=== PATIENT | female | born 1975 | race African-American/Black ===

== ENCOUNTER 2016-10-02 12:04 | Observation (INO) | payer BC ==
[2016-10-02] VITALS (65 sets, daily range): BP systolic 112–124; BP diastolic 53–73; PULSE 80–115; RESP 18; TEMP 97.8–98.3
[2016-10-02] MEDS ORDERED: ACETAMINOPHEN 325 MG TAB PO PRN (12:45)
[2016-10-02] MEDS ORDERED: SODIUM CHLORIDE 0.9% FLUSH 10 ML FLUSH IV FLUSH PRN (12:45)
[2016-10-02] MEDS ORDERED: ONDANSETRON ODT 4 MG TAB PO PRN (12:45)
[2016-10-02] MEDS ORDERED: ZOLPIDEM TARTRATE 5 MG TAB PO PRN (12:45)
[2016-10-02] MEDS ORDERED: ALUMINUM/MAGNESIUM/SIMETH 30 ML CUP PO PRN (12:45)
[2016-10-02] MEDS: LACTATED RINGER'S 1000 ML INJ 1,000 ML IV SCH ×2 (13:46→20:18)
[2016-10-02] MEDS: BETAMETHASONE SOD PHOS/ACETATE SUSP 30 MG/5 ML VIAL IM SCH (13:47)
--- NOTE | 2016-10-02 13:59 | MH ---
cc: WINNIE KO DATE OF ADMISSION: 10/02/2016 CHIEF COMPLAINT: Patient with recurrent oligohydramnios on twin gestation. HISTORY OF PRESENT ILLNESS: The patient is a 40-year-old female 2, para 1-0-0-1 who underwent IVF conception February of 2016 resulting in a dichorionic diamniotic twin gestation. Due date is November 22, 2016. The patient has been followed by serial ultrasound reflecting oligohydramnios with an JEANNA of 3.24 of Twin A. Baby B has an JEANNA of 6.09. Biophysical profile is 8/8. The patient has no significant complaints, concerns or issues. Both babies are active with normal gross movement. The patient is admitted for oligohydramnios and monitoring. The patient will also be recommended for betamethasone injections for lung maturity. OBSTETRICAL HISTORY: The patient is status post vaginal delivery in 1999 of a full-term healthy male weighing 8 pounds, 13 ounces. The patient subsequently underwent myomectomy in November of 2015 and after the procedure was recommended to have an elective if she conceived. PAST MEDICAL HISTORY: She denies any systemic or chronic disease state. ALLERGIES: SHE HAS NO KNOWN DRUG ALLERGIES. CURRENT MEDICATIONS: vitamins. FAMILY HISTORY Noncontributory. SOCIAL HISTORY: She denies use of alcohol or illicit substances. The patient has been exposed to marijuana in the very beginning prior to and has since been tested negative. The patient does not smoke. The patient is . PHYSICAL EXAMINATION: GENERAL: The patient is well-appearing well-nourished female in no acute distress. VITAL SIGNS: Stable. Blood pressures 100/60. She weighs 210 pounds. HEAD, EYES, EARS, NOSE, THROAT: Shows no adenopathy or thyromegaly. LUNGS: Lungs were clear in all almanza. CARDIAC: Regular rate and rhythm without murmur, rub or gallop. ABDOMEN: Abdomen is gravid. Fundus measures about 38 cm. heart tones were documented in the 140s each. The cervix is closed. EXTREMITIES: Symmetrical. Full range of motion. No cyanosis, clubbing or edema. ASSESSMENT: The patient is 32 weeks and 4 days by IVF conception dichorionic diamniotic twin gestation with oligohydramnios of twin A. The patient's estimated weight was documented September 28 this month. Twin A is 1784 grams. Twin B is 2036 grams. Both babies are vertex. The patient's group B strep status is unknown. The plan of delivery if that is to precipitate would be an elective . The patient will be monitored with reassessment of her amniotic fluid volume. MD TONY Murphy/KIM /12:23 PM /1:40 PM
[2016-10-02 14:22] LABS: AUTOMATED NEUTROPHIL # 4.9 TH/MM3 (1.8-7.7); BASOPHIL % 0.2 % (0.0-2.0); EOSINOPHIL % 0.4 % (0.0-4.0); HEMATOCRIT 35.5 % (35.0-46.0); LYMPH % 27.3 % (9.0-44.0); LYMPHOCYTE # 2.1 TH/MM3 (1.0-4.8); MEAN CELL VOLUME 89.1 FL (80.0-100.0); MEAN CORPUSCULAR HEMOGLOBIN 29.7 PG (27.0-34.0); MEAN CORPUSCULAR HGB CONC 33.3 % (32.0-36.0); MONO % 6.5 % (0.0-8.0); NEUT % 65.6 % (16.0-70.0); PLATELET COUNT 136 TH/MM3 (150-450); RED BLOOD COUNT 3.99 MIL/MM3 (4.00-5.30); WHITE BLOOD COUNT 7.5 TH/MM3 (4.0-11.0)
[2016-10-02 14:23] LABS: HEMO FLAGS AUTO DIFF
[2016-10-02 14:37] LABS: BACTERIA, URINE RARE /hpf; BLOOD, URINE NEG (NEG); COMMENT (UR) CULT NOT INDICATED; CULTURE IF INDICATED CULT NOT INDICATED; GLUCOSE,URINE NEG (NEG); KETONE, URINE NEG (NEG); MUCUS URINE FEW /lpf (OCC); NITRITE,URINE NEG (NEG); PH, URINE 6.5 (5.0-8.5); SQUAMOUS EPITHELIAL CELL URINE 36 /hpf (0-5); URINE COLOR YELLOW (YELLW/STRAW)
[2016-10-02 14:50] LABS: BANDS 1 % (0-6); EOSINOPHILS 1 % (0-4); METAMYELOCYTES 1 % (0-1); MYELOCYTES 1 % (0-0); POLYS (SEG NEUTROPHILS) 64 % (16-70); WBC DIFF SAMPLE 100
[2016-10-02 14:52] LABS: PLATELET ESTIMATE SMEAR LOW (NORMAL); PLATELET MORPHOLOGY ENLARGED (NORMAL); SCAN/DIFF FINAL DIFF MANUAL
[2016-10-02] MEDS: SODIUM CHLORIDE 0.9% FLUSH 10 ML FLUSH IV FLUSH SCH (21:00)
[2016-10-03] VITALS (30 sets, daily range): BP systolic 102–135; BP diastolic 52–66; PULSE 90–107; RESP 18–20; TEMP 97.9–98.2
[2016-10-03] MEDS: LACTATED RINGER'S 1000 ML INJ 1,000 ML IV SCH (04:00)
[2016-10-03] MEDS ORDERED: MULTIVIT/MIN/PREN/FOL AC/IRON PRENATAL TAB PO SCH (09:00)
[2016-10-03] MEDS: SODIUM CHLORIDE 0.9% FLUSH 10 ML FLUSH IV FLUSH SCH (09:00)
--- NOTE | 2016-10-03 09:52 | PD.OB.ANTE ---
Subjective Diagnosis: (1) Dichorionic diamniotic twin in third trimester (2) conceived through in vitro fertilization (3) Oligohydramnios antepartum Diagnosis: Principal (4) Advanced maternal age in multigravida Antepartum ROS: Reports: movement normal, Denies: New complaints, Loss of fluid, Vaginal bleeding, Contractions, Other Objective Vital Signs Vital Signs Date Time Temp Pulse Resp B/P Pulse Ox O2 Delivery O2 Flow Rate FiO2 10/03/16 08:24 107 20 135/65 10/03/16 08:20 102 10/03/16 08:15 100 10/03/16 08:10 101 10/03/16 08:05 101 10/03/16 08:00 99 10/03/16 06:45 103 10/03/16 06:40 104 10/03/16 06:35 103 10/03/16 06:30 101 10/03/16 06:25 99 10/03/16 06:20 104 10/03/16 06:15 101 10/03/16 06:10 102 10/03/16 06:05 96 10/03/16 06:00 92 10/03/16 05:56 98.2 10/03/16 05:55 90 10/03/16 05:50 18 10/03/16 05:50 91 10/03/16 05:45 94 10/03/16 05:35 90 10/03/16 05:28 104 102/52 10/03/16 05:25 102 10/03/16 05:20 95 10/03/16 05:15 105 10/03/16 05:10 94 10/03/16 05:05 98 10/03/16 05:00 91 10/03/16 00:00 18 10/02/16 23:55 91 10/02/16 23:50 88 10/02/16 23:40 102 10/02/16 23:25 96 10/02/16 23:20 99 10/02/16 23:18 93 112/53 10/02/16 23:15 99 10/02/16 23:10 91 10/02/16 23:05 100 10/02/16 23:00 101 10/02/16 20:12 18 10/02/16 20:12 97.8 10/02/16 20:10 87 10/02/16 20:10 89 124/73 10/02/16 20:00 92 10/02/16 17:55 98 10/02/16 17:50 99 10/02/16 17:45 113 10/02/16 17:40 97 10/02/16 17:35 98.3 106 10/02/16 17:30 106 10/02/16 17:25 115 10/02/16 17:22 18 10/02/16 17:22 105 123/71 10/02/16 17:20 111 10/02/16 17:15 115 10/02/16 16:50 100 10/02/16 16:40 80 10/02/16 16:35 100 10/02/16 16:30 82 10/02/16 16:25 102 10/02/16 16:15 104 10/02/16 16:10 105 10/02/16 16:05 105 10/02/16 16:00 104 10/02/16 15:55 108 10/02/16 15:50 103 10/02/16 15:45 103 10/02/16 15:40 103 10/02/16 15:35 105 10/02/16 15:30 99 10/02/16 15:25 97 10/02/16 15:20 99 10/02/16 15:15 103 10/02/16 15:10 108 10/02/16 15:05 102 10/02/16 15:00 95 10/02/16 14:55 94 10/02/16 14:50 96 10/02/16 14:45 97 10/02/16 14:40 94 10/02/16 14:35 95 10/02/16 14:30 96 10/02/16 14:20 94 10/02/16 14:15 93 10/02/16 14:10 97 10/02/16 14:05 96 10/02/16 13:25 87 10/02/16 13:20 89 10/02/16 13:15 88 10/02/16 13:05 99 10/02/16 13:00 91 10/02/16 12:55 98 10/02/16 12:50 92 10/02/16 12:45 94 10/02/16 12:40 98 10/02/16 12:35 94 10/02/16 12:30 101 Lab & Micro Results Test 10/02/16 13:45 White Blood Count 7.5 TH/MM3 Red Blood Count 3.99 MIL/MM3 Hemoglobin 11.8 GM/DL Hematocrit 35.5 % Mean Corpuscular Volume 89.1 FL Mean Corpuscular Hemoglobin 29.7 PG Mean Corpuscular Hemoglobin 33.3 % Concent Red Cell Distribution Width 15.0 % Platelet Count 136 TH/MM3 Mean Platelet Volume 9.5 FL Neutrophils (%) (Auto) 65.6 % Lymphocytes (%) (Auto) 27.3 % Monocytes (%) (Auto) 6.5 % Eosinophils (%) (Auto) 0.4 % Basophils (%) (Auto) 0.2 % Neutrophils # (Auto) 4.9 TH/MM3 Lymphocytes # (Auto) 2.1 TH/MM3 Monocytes # (Auto) 0.5 TH/MM3 Eosinophils # (Auto) 0.0 TH/MM3 Basophils # (Auto) 0.0 TH/MM3 CBC Comment AUTO DIFF Differential Total Cells 100 Counted Neutrophils % (Manual) 64 % Band Neutrophils % 1 % Lymphocytes % 29 % Monocytes % 3 % Eosinophils % 1 % Neutrophils # (Manual) 5.0 TH/MM3 Metamyelocytes 1 % Myelocytes 1 % Differential Comment FINAL DIFF MANUAL Platelet Estimate LOW Platelet Morphology Comment ENLARGED Red Cell Morphology Comment NORMAL Urine Color YELLOW Urine Turbidity HAZY Urine pH 6.5 Urine Specific [place] 1.019 Urine Protein TRACE mg/dL Urine Glucose (UA) NEG mg/dL Urine Ketones NEG mg/dL Urine Occult Blood NEG Urine Nitrite NEG Urine Bilirubin NEG Urine Urobilinogen LESS THAN 2.0 MG/DL Urine Leukocyte Esterase NEG Urine RBC LESS THAN 1 /hpf Urine WBC 1 /hpf Urine Squamous Epithelial 36 /hpf Cells Urine Bacteria RARE /hpf Urine Mucus FEW /lpf Microscopic Urinalysis Comment CULT NOT INDICATED Band and Hold Physical Exam GENERAL: Well-nourished, well-developed patient. CARDIOVASCULAR: Regular rate and rhythm without murmurs, gallops, or rubs. RESPIRATORY: Breath sounds equal bilaterally. No accessory muscle use. ABDOMEN/GI: Abdomen soft, non-tender. Fundus: [-] GENITOURINARY: External Genitalia: intact and normal in appearance Cervix: defer Presentation:ceph/ceph Membranes: [-] Uterine Contractions: [-] FHT's: Category:I Baseline:130 Reactive: [-] Variability:mod Decels: [-] EXTREMITIES: No cyanosis or edema, non-tender, without signs of DVT. Assessment and Plan Problem List: (1) Oligohydramnios antepartum Status: Acute (2) Dichorionic diamniotic twin in third trimester Status: Acute (3) conceived through in vitro fertilization Status: Acute (4) Advanced maternal age in multigravida Status: Acute Assessment and Plan The patient is 41 yo at 32 weeks and 4 days by IVF conception dichorionic diamniotic twin gestation with oligohydramnios of twin A. Pt admitted for iv hydration, bms , and re-evaluation. She is s/p one dose of bms. She will receive second dose this afternoon. Repeat BPP today 02/02. Twin A JEANNA 2.9 and weight 1773g (34%), Twin B 6.1 and weight 2052g (54%) The patient's group B strep status is unknown. The plan of delivery if that is to precipitate would be an elective . The patient will be monitored with reassessment of her amniotic fluid volume. Nuria Sheldon MD Oct 03, 2016 09:52
[2016-10-03] MEDS: BETAMETHASONE SOD PHOS/ACETATE SUSP 30 MG/5 ML VIAL IM SCH (13:51)
--- NOTE | 2016-10-03 14:12 | HHI.DCPOC ---
Discharge Care Plan Diagnosis: (1) Oligohydramnios antepartum (2) Dichorionic diamniotic twin in third trimester (3) Advanced maternal age in multigravida (4) conceived through in vitro fertilization Report Symptoms to Your Doctor -Temperate above 100.5 degrees -Unusual pain or calf pain -Increased vaginal bleeding -Painful or difficulty urinating -Feelings of extreme sadness or anxiety after 2 weeks Goals to Promote Your Health * To prevent worsening of your condition and complications * To maintain your health at the optimal level Directions to Meet Your Goals Take your medications as prescribed Follow your dietary instruction Follow activity as directed Ensure plenty of rest for recovery Drink fluids for hydration Keep your appointments as scheduled Take your immunizations and boosters as scheduled If your symptoms worsen call your PCP, if no PCP go to Urgent Care Center or Emergency Room Smoking is Dangerous to Your Health. Avoid second hand smoke Call the 24-hour crisis hotline for domestic abuse at Nuria Sheldon MD Oct 03, 2016 14:12
== END 2016-10-03 14:30 | disposition home or self-care (01) ==
LOC: H2EA 12:04
PROVIDERS: ADMIT Obstetrics & Gynecology; ATTEND Obstetrics & Gynecology
DX: O41.03X0 Oligohydramnios, third trimester, not applicable or unspecified (principal); O30.043 Twin pregnancy, dichorionic/diamniotic, third trimester; O09.813 Supervision of pregnancy resulting from assisted reproductive technology, third trimester; O09.523 Supervision of elderly multigravida, third trimester; Z3A.32 32 weeks gestation of pregnancy
CPT/HCPCS: 76816; 76819; 81001; 84112; 85007; 85027; G0378; J0702; J7120

== ENCOUNTER → 2016-10-05 | Emergency (ER) | payer BC ==
[~2016-10-05] MED LIST: OXYC1TAB63 PO
--- NOTE | 2016-10-05 13:19 | PD ---
HPI Chief Complaint Presenting for NST Travel History International Travel<30 Days: No Contact w/Intl Traveler<30Days: No Known Affected Area: No History of Present Illness HPI TIUP at 33w 1d, presenting per Dr. Parnell for NST. Patient seen in the office, noted to have a BPP of 4/8 twin A and 8/8 twin B. Patient without complaints today. Reports good FM. Denies contractions/LOF/VB. Para: 1 : 3 History Past Medical History Medical History: Denies Significant Hx Obstetric History Obstetric History 1 FT Past Surgical History Narrative Surgical 2016 Myomectomy Family History Family History: Negative Social History Alcohol Use: No Tobacco Use: No Substance Abuse: No Allergies-Medications (Allergen,Severity, Reaction): Coded Allergies: No Known Allergies (Verified , 12/27/08) Physical Exam AFVSS BP 113/63 Narrative GENERAL: Well-nourished, well-developed patient. SKIN: Warm and dry. HEAD: Normocephalic and atraumatic. EYES: No scleral icterus. No injection or drainage. ENT: No nasal drainage noted. Mucous membranes pink. Airway patent. NECK: Supple, trachea midline. No JVD. CARDIOVASCULAR: Regular rate and rhythm without murmurs, gallops, or rubs. RESPIRATORY: Breath sounds equal bilaterally. No accessory muscle use. BREASTS: Bilateral exam showed no masses , no retractions, no nipple discharge. ABDOMEN/GI: Abdomen soft, non-tender, bowel sounds present, no rebound, no guarding Gravid to [-] weeks size Fundal Height: [-] GENITOURINARY: External Genitalia: intact and normal in appearance BUS glands: [-] Cervix: [-] Dilatation: [-] Effacement: [-] Station: [-] Presentation: [-] Membranes: [intact or ruptured] Uterine Contractions: [-] FHT's: Category: [1] Baseline: [Twin A 150s, moderate variability, 1 variable to 120/Twin B moderate variability] Reactive: [-] Variability: [-] Decels: [-] EXTREMITIES: No cyanosis or edema. BACK: Nontender without obvious deformity. No CVA tenderness. NEUROLOGICAL: Awake and alert. Motor and sensory grossly within normal limits. Five out of 5 muscle strength in all muscle groups. Normal speech. Data Data Vital Signs Reviewed: Yes MDM Interpretation(s) TIUP at 33w 1d, BPP of 4/8- Twin A Plan Will obtain NST. Continue monitoring. heart rate tracing d/w Dr. Parnell. Will d/c home. Patient to keep f/u as scheduled for 10-07-16. All questions answered. Disposition: 01 DISCHARGE HOME Condition: Silvina Prakash MD Oct 05, 2016 13:19
== END | disposition home or self-care (01) ==
LOC: HOBED 12:48
DX: O30.003 Twin pregnancy, unspecified number of placenta and unspecified number of amniotic sacs, third trimester (principal); Z3A.33 33 weeks gestation of pregnancy
CPT/HCPCS: 99283

== ENCOUNTER 2016-10-06 09:37 | Inpatient (IN) | payer BC ==
[2016-10-06] VITALS (13 sets, daily range): BP systolic 107–141; BP diastolic 53–91; PULSE 65–89; RESP 17–18; TEMP 98.1–99.7; O2SAT 97–99
[2016-10-06] MEDS ORDERED: CITRIC ACID-SODIUM CITRATE LIQ 30 ML UDC PO SCH (10:30)
[2016-10-06] MEDS ORDERED: LACTATED RINGER'S 1000 ML IV ONE (10:30)
[2016-10-06] MEDS: LACTATED RINGER'S 1000 ML IV SCH ×2 (10:30→22:02)
[2016-10-06] MEDS ORDERED: ceFAZolin 2 GM PREMIX 50 ML IV SCH (10:30)
[2016-10-06] MEDS ORDERED: OXYTOCIN 10 UNIT/ML AMP ONE (10:46)
[2016-10-06 10:53] LABS: BACTERIA, URINE OCC /hpf; BLOOD, URINE NEG (NEG); GLUCOSE,URINE NEG (NEG); HYALINE CAST, URINE 2 /lpf (RARE); KETONE, URINE NEG (NEG); MUCUS URINE FEW /lpf (OCC); NITRITE,URINE NEG (NEG); PH, URINE 6.5 (5.0-8.5); SQUAMOUS EPITHELIAL CELL URINE 19 /hpf (0-5); TRANSITIONAL EPI CELLS, URINE <1 /hpf; URINE COLOR YELLOW (YELLW/STRAW)
[2016-10-06 10:54] LABS: AUTOMATED NEUTROPHIL # 5.4 TH/MM3 (1.8-7.7); BASOPHIL % 0.1 % (0.0-2.0); EOSINOPHIL % 0.2 % (0.0-4.0); HEMATOCRIT 34.2 % (35.0-46.0); LYMPH % 27.7 % (9.0-44.0); LYMPHOCYTE # 2.3 TH/MM3 (1.0-4.8); MEAN CELL VOLUME 89.7 FL (80.0-100.0); MEAN CORPUSCULAR HEMOGLOBIN 29.7 PG (27.0-34.0); MEAN CORPUSCULAR HGB CONC 33.1 % (32.0-36.0); MONO % 7.3 % (0.0-8.0); NEUT % 64.7 % (16.0-70.0); PLATELET COUNT 168 TH/MM3 (150-450); RED BLOOD COUNT 3.81 MIL/MM3 (4.00-5.30); RED CELL DISTRIBUTION WIDTH 15.1 % (11.6-17.2); WHITE BLOOD COUNT 8.3 TH/MM3 (4.0-11.0)
[2016-10-06 10:56] LABS: HEMO FLAGS AUTO DIFF
[2016-10-06 10:56] LABS: COMMENT (UR) CULTURE INDICATED; CULTURE IF INDICATED CULTURE INDICATED
[2016-10-06] MEDS ORDERED: ACETAMINOPHEN 1000 MG/100 ML VIAL IV ONE ×2 (11:45→13:09)
[2016-10-06] MEDS ORDERED: oxyCODONE/ACETAMINOPHEN 5 MG/325 MG TAB PO PRN (11:45)
[2016-10-06] MEDS ORDERED: SIMETHICONE 80 MG CHEWABLE TAB PO PRN (11:45)
[2016-10-06] MEDS: SODIUM CHLORIDE 0.9% FLUSH 10 ML FLUSH IV FLUSH SCH ×2 (11:45→22:00)
[2016-10-06] MEDS ORDERED: EPIDURAL-NALOXONE HCL 0.4 MG/ML AMP IV PRN (11:45)
[2016-10-06] MEDS ORDERED: EPIDURAL-DIPHENHYDRAMINE HCL 50 MG CAP PO PRN (11:45)
[2016-10-06] MEDS ORDERED: ONDANSETRON HCL 4 MG/2 ML VIAL IV PUSH PRN (11:45)
[2016-10-06] MEDS ORDERED: EPIDURAL-DO NOT ADMINISTER ANTICOAGULANTS PRN (11:45)
[2016-10-06] MEDS ORDERED: OXYTOCIN 30 UNITS-500ML PREMIX 500 ML IV ONE (11:45)
[2016-10-06] MEDS ORDERED: EPIDURAL-NO SYSTEMIC NARCOTICS PRN (11:45)
[2016-10-06] MEDS ORDERED: EPIDURAL-DIPHENHYDRAMINE HCL 50 MG/ML VIAL IV PUSH PRN (11:45)
[2016-10-06] MEDS ORDERED: SODIUM CHLORIDE 0.9% FLUSH 10 ML FLUSH IV FLUSH PRN (11:45)
[2016-10-06 11:46] LABS: BANDS 1 % (0-6); METAMYELOCYTES 1 % (0-1); MYELOCYTES 1 % (0-0); NEUTROPHIL # MANUAL DIFF 5.1 TH/MM3 (1.8-7.7); PLATELET ESTIMATE SMEAR NORMAL (NORMAL); PLATELET MORPHOLOGY NORMAL (NORMAL); POLYS (SEG NEUTROPHILS) 58 % (16-70); SCAN/DIFF FINAL DIFF MANUAL; WBC DIFF SAMPLE 100
[2016-10-06] MEDS ORDERED: METHYLERGONOVINE MALEATE 0.2 MG/ML VIAL ONE ×2 (12:34→13:56)
[2016-10-06] MEDS ORDERED: MORPHINE SULFATE PF 5 MG/10 ML VIAL ONE (12:41)
[2016-10-06] MEDS ORDERED: ONDANSETRON HCL 4 MG/2 ML VIAL ONE (12:41)
--- NOTE | 2016-10-06 12:43 | PD.OB.DELI ---
Procedure Note Section Procedure Performed by Ryder Parnell Procedure: Primary Low Transverse Sec (prior myomectomy,required section) Confirmed correct: Patient, Procedure, Site, Time-out taken Anesthesia: Spinal Medication prior to procedure: As documented in eMAR Monitoring during procedure: Blood pressure monitoring, site monitor, doppler, monitor Urinary catheter: Inserted using sterile technique, To dependent drainage Sterile preparation: Duraprep Position: Supine with wedge to right side, Supine with safety belt applied Operative Features Skin Incision: Pfannenstiel Uterine Incision: Low transverse w/knife / scissors Membranes Ruptured: Artificially Presentation: Occiput anterior (A and B) Delivery of infant: Uneventful Infant: Male (female -A), Female (Twin B 7,7; weight 4# 12oz) One Minute : 8 Five Minute : 9 Weight: 3# 11oz Placenta delivered: Intact Medications: Antibiotics, Oxytocin Procedure tolerated: Well Maternal Condition: Stable Condition: Stable ( both on room air, adm. to NICU for obs.) Ryder Parnell MD Oct 06, 2016 12:43
[2016-10-06] MEDS ORDERED: METHYLERGONOVINE MALEATE 0.2 MG/ML VIAL IM ONE ×2 (12:45→13:58)
[2016-10-06] MEDS ORDERED: CARBOPROST TROMETHAMINE 250 MCG/ML VIAL ONE (13:00)
[2016-10-06] MEDS ORDERED: CARBOPROST TROMETHAMINE 250 MCG/ML VIAL IM ONE (13:02)
[2016-10-06] MEDS ORDERED: OXYTOCIN 30 UNITS-500ML PREMIX 500 ML ONE ×2 (13:09→14:59)
[2016-10-06] MEDS ORDERED: MISOPROSTOL 200 MCG TAB RECTAL ONE (13:58)
[2016-10-06] MEDS ORDERED: MISOPROSTOL 200 MCG TAB ONE ×2 (13:58)
--- NOTE | 2016-10-06 14:07 | HHI.PR ---
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 Patient is s/p c- section for twin gestation, approx 11:50 am. Upon arrival approx 300cc blood and clot on pad. Uterine evacuation performed with additional 300cc blood clot obtained with much improved uterine tone. Methergine 0.2mg IM given, and total of 1000mg cytotec administered. BP 132/85 P91 O2 sat 98% CBC/PT/PTT/fibinogen will be ordered stat Patient is presently hemodynamically stable Heide Cabello MD Oct 06, 2016 14:07
[2016-10-06 14:31] LABS: HEMATOCRIT 32.7 % (35.0-46.0); MEAN CELL VOLUME 88.7 FL (80.0-100.0); MEAN CORPUSCULAR HEMOGLOBIN 30.6 PG (27.0-34.0); MEAN CORPUSCULAR HGB CONC 34.5 % (32.0-36.0); PLATELET COUNT 150 TH/MM3 (150-450); RED BLOOD COUNT 3.69 MIL/MM3 (4.00-5.30); RED CELL DISTRIBUTION WIDTH 14.9 % (11.6-17.2); REVIEW FLAG FINAL; WHITE BLOOD COUNT 6.2 TH/MM3 (4.0-11.0)
[2016-10-06 15:28] LABS: APTT (PATIENT) 28.2 SEC (24.3-30.1); INTERNATIONAL NORMALIZED RATIO 0.9 RATIO; PROTHROMBIN TIME - PATIENT 10.2 SEC (9.8-11.6)
[2016-10-06] MEDS ORDERED: LACTATED RINGER'S 1000 ML INJ 1,000 ML IV SCH (16:33)
[2016-10-06] MEDS ORDERED: OXYTOCIN 30 UNITS-500ML PREMIX 500 ML IV PRN (21:45)
[2016-10-06] MEDS: IBUPROFEN 600 MG TAB PO PRN (22:05)
[2016-10-06] MEDS: oxyCODONE/ACETAMINOPHEN 5 MG/325 MG TAB PO PRN (22:05)
[2016-10-06] MEDS: DOCUSATE SODIUM 50 MG/SENNA 8.6 MG TAB PO PRN (22:05)
[2016-10-07 01:25] VITALS: BP 100/58
[2016-10-07 01:26] VITALS: PULSE 75; RESP 16; TEMP 98.1
[2016-10-07 05:59] LABS: AUTOMATED NEUTROPHIL # 6.6 TH/MM3 (1.8-7.7); BASOPHIL # 0.1 TH/MM3 (0-0.2); BASOPHIL % 0.6 % (0.0-2.0); EOSINOPHIL # 0.1 TH/MM3 (0-0.4); EOSINOPHIL % 0.8 % (0.0-4.0); HEMATOCRIT 29.5 % (35.0-46.0); LYMPH % 23.9 % (9.0-44.0); LYMPHOCYTE # 2.4 TH/MM3 (1.0-4.8); MEAN CELL VOLUME 88.6 FL (80.0-100.0); MEAN CORPUSCULAR HEMOGLOBIN 30.2 PG (27.0-34.0); MEAN CORPUSCULAR HGB CONC 34.1 % (32.0-36.0); MONO % 9.5 % (0.0-8.0); NEUT % 65.2 % (16.0-70.0); PLATELET COUNT 153 TH/MM3 (150-450); RED BLOOD COUNT 3.33 MIL/MM3 (4.00-5.30); RED CELL DISTRIBUTION WIDTH 14.9 % (11.6-17.2)
[2016-10-07 06:13] LABS: HEMO FLAGS AUTO DIFF
[2016-10-07 07:51] LABS: SCAN/DIFF AUTO DIFF CONFIRMED
--- NOTE | 2016-10-07 08:31 | HHI.OB ---
Subjective Post Operative Day: 1 Remarks no complaints Objective Vitals/I&O Vital Signs Date Time Temp Pulse Resp B/P Pulse Ox O2 Delivery O2 Flow Rate FiO2 10/07/16 01:26 98.1 16 10/07/16 01:26 75 10/07/16 01:25 100/58 10/06/16 19:17 82 17 120/69 98 10/06/16 19:17 98.5 10/06/16 15:50 74 18 125/78 10/06/16 15:50 99.7 10/06/16 15:04 98 10/06/16 15:04 70 18 114/53 10/06/16 14:55 98.4 10/06/16 14:49 83 18 121/82 98 10/06/16 14:33 65 18 130/84 97 10/06/16 14:20 83 18 141/91 98 10/06/16 14:05 83 18 99 10/06/16 14:05 132/85 10/06/16 13:50 76 18 119/76 10/06/16 13:50 97 10/06/16 13:32 82 18 134/73 98 10/06/16 13:18 88 18 132/83 10/06/16 13:18 98 10/06/16 13:04 89 18 98 10/06/16 13:04 114/79 10/06/16 12:45 98.1 81 18 107/71 98 Result Diagram: 10/07/16 0544 Objective Remarks GENERAL: Well-nourished, well-developed patient. CARDIOVASCULAR: Regular rate and rhythm without murmurs, gallops, or rubs. RESPIRATORY: Breath sounds equal bilaterally. No accessory muscle use. ABDOMEN/GI: Abdomen soft, non-tender, bowel sounds present. Incision: dressing Clean, dry and intact. Fundus: Firm, non-tender at umbilicus. GENITOURINARY: Light to moderate bleeding. EXTREMITIES: No cyanosis or edema, non-tender, without signs of DVT. Medications and IVs Current Medications Medications (Trade) Dose Ordered Sig/Bruce Route Start Time Stop Time Status Last Admin Lactated Ringer's 1,000 ml @ 150 mls/hr Q6H40M IV 10/06/16 10:30 10/06/16 22:02 (Lr 1000 ml Inj) 1,000 ml @ 100 mls/hr Q10H IV 10/06/16 16:33 10/07/16 12:32 (NS Flush) 2 ml BID IV FLUSH 10/06/16 11:45 10/06/16 22:00 (NS Flush) 2 ml UNSCH PRN IV FLUSH 10/06/16 11:45 (Mylicon Chew) 80 mg QID PRN PO 10/06/16 11:45 (Motrin) 600 mg Q6H PRN PO 10/06/16 11:45 10/06/16 22:05 (Percocet 5-325 Mg) 1 tab Q4H PRN PO 10/06/16 11:45 10/06/16 22:05 (Percocet 5-325 Mg) 2 tab Q4H PRN PO 10/06/16 11:45 (Jalyn-Colace) 2 tab Q12H PRN PO 10/06/16 11:45 10/06/16 22:05 (M-M-R Ii Inj) 0.5 ml ONCE ONCE SQ 10/07/16 16:00 10/07/16 16:01 (Boostrix Inj) 0.5 ml ONCE ONCE IM 10/07/16 16:00 10/07/16 16:01 (Zofran Inj) 4 mg Q6H PRN IV PUSH 10/06/16 11:45 Miscellaneous Information NO SYSTEMIC NARCOTICS TO BE GIVEN FO... UNSCH PRN .XX 10/06/16 11:45 10/07/16 11:44 (Narcan Inj) 0.4 mg UNSCH PRN IV 10/06/16 11:45 10/07/16 11:44 (Benadryl Inj) 25 mg Q6H PRN IV PUSH 10/06/16 11:45 10/07/16 11:44 (Benadryl) 50 mg Q6H PRN PO 10/06/16 11:45 10/07/16 11:44 Miscellaneous Information ALL NURSING DEPARTMENTS UNSCH PRN .XX 10/06/16 11:45 10/07/16 11:44 Assessment/Plan Problem List: (1) 33 weeks gestation of (2) Twin in third trimester (3) delivery delivered Assessment and Plan POD #1 s/p c/s due to previous myomectomy, twins, Discharge Planning routine Attending Attestation pt seen by me Thelma Kirby MD Oct 07, 2016 08:31
[2016-10-07] MEDS: IBUPROFEN 600 MG TAB PO PRN ×2 (08:44→18:12)
[2016-10-07] MEDS: oxyCODONE/ACETAMINOPHEN 5 MG/325 MG TAB PO PRN ×2 (08:44→22:52)
[2016-10-07] MEDS ORDERED: MEASLES, MUMPS, RUBELLA VACCINE 0.5 ML VIAL SQ ONE (16:00)
[2016-10-07] MEDS ORDERED: DIPHTH/TETANUS/ACEL PERTUSSIS (BOOSTER) 0.5 ML VIAL/PFS IM ONE (16:00)
[2016-10-07] MEDS: DOCUSATE SODIUM 50 MG/SENNA 8.6 MG TAB PO PRN (22:50)
[2016-10-08] MEDS: IBUPROFEN 600 MG TAB PO PRN (06:18)
[2016-10-08] MEDS: oxyCODONE/ACETAMINOPHEN 5 MG/325 MG TAB PO PRN (06:19)
--- NOTE | 2016-10-08 08:45 | HHI.OB ---
Subjective Post Operative Day: 3 Remarks doing well except pain is significant 12/05 Objective Result Diagram: 10/07/16 0544 Objective Remarks GENERAL: Well-nourished, well-developed patient. CARDIOVASCULAR: Regular rate and rhythm without murmurs, gallops, or rubs. RESPIRATORY: Breath sounds equal bilaterally. No accessory muscle use. ABDOMEN/GI: Abdomen soft, non-tender, bowel sounds present. Incision: dressing Clean, dry and intact. time to remove giovany Fundus: Firm, non-tender at umbilicus. GENITOURINARY: Light to moderate bleeding. EXTREMITIES: No cyanosis or edema, non-tender, without signs of DVT. Medications and IVs Current Medications Medications (Trade) Dose Ordered Sig/Bruce Route Start Time Stop Time Status Last Admin (Lr 1000 ml Inj) 1,000 ml @ 150 mls/hr Q6H40M IV 10/06/16 10:30 10/06/16 22:02 (NS Flush) 2 ml BID IV FLUSH 10/06/16 11:45 10/06/16 22:00 (NS Flush) 2 ml UNSCH PRN IV FLUSH 10/06/16 11:45 (Mylicon Chew) 80 mg QID PRN PO 10/06/16 11:45 (Motrin) 600 mg Q6H PRN PO 10/06/16 11:45 10/08/16 06:18 (Percocet 5-325 Mg) 1 tab Q4H PRN PO 10/06/16 11:45 10/08/16 06:19 (Percocet 5-325 Mg) 2 tab Q4H PRN PO 10/06/16 11:45 (Jalyn-Colace) 2 tab Q12H PRN PO 10/06/16 11:45 10/07/16 22:50 (Zofran Inj) 4 mg Q6H PRN IV PUSH 10/06/16 11:45 Assessment/Plan Problem List: (1) 33 weeks gestation of (2) Twin in third trimester (3) delivery delivered Assessment and Plan POD #3 s/p c/s due to previous myomectomy, twins, needs giovany out discharge to stay close and remain on campus follow up one week Discharge Planning routine Evangelina Cramer MD Oct 08, 2016 08:45
--- NOTE | 2016-10-08 08:46 | HHI.DCPOC ---
Discharge Care Plan Report Symptoms to Your Doctor -Temperate above 100.5 degrees -Redness, of incision or excessive or foul smelling drainage -Unusual pain or calf pain -Increased vaginal bleeding -Painful or difficulty urinating -Feelings of extreme sadness or anxiety after 2 weeks Goals to Promote Your Health * To prevent worsening of your condition and complications * To maintain your health at the optimal level Directions to Meet Your Goals Take your medications as prescribed Follow your dietary instruction Follow activity as directed Ensure plenty of rest for recovery Drink fluids for hydration Keep your appointments as scheduled Take your immunizations and boosters as scheduled If your symptoms worsen call your PCP, if no PCP go to Urgent Care Center or Emergency Room Smoking is Dangerous to Your Health. Avoid second hand smoke Call the 24-hour crisis hotline for domestic abuse at Evangelina Cramer MD Oct 08, 2016 08:46
[2016-10-08] MEDS ORDERED: OXYC1TAB63 PO (08:47)
--- NOTE | 2016-10-12 09:35 | MP ---
cc: RYDER KO M.D. DATE OF SURGERY: 10/06/2016 PREOPERATIVE DIAGNOSIS 1. Twin intrauterine gestation. 2. Oligohydramnios. 3. Twin A IVF conception. 4. Dichorionic diamniotic twins. 5. History of myomectomy. PROCEDURE Primary low transverse section delivery of twin gestation for non-reassuring assessment and oligohydramnios. POSTOPERATIVE DIAGNOSIS 1. Twin intrauterine gestation. 2. Oligohydramnios. 3. Twin A IVF conception. 4. Dichorionic diamniotic twins. 5. History of myomectomy. SURGEON Parmjit ANESTHESIA Spinal. ESTIMATED BLOOD LOSS 700 cc. DRAINS Rios to gravity. OPERATIVE FINDINGS Twin gestation delivered. Twin A female weighing 3 pounds 11 ounces. Twin B male weighing 4 pounds 12 ounces. Apgars were pending. INDICATIONS FOR PROCEDURE The patient was followed with persistent oligohydramnios of twin A. Progressive loss of amniotic fluid volume was noted. Concerns for well-being were discussed. The patient received betamethasone the week prior. Recommendation was to proceed with operative delivery due to previous history of myomectomy requiring primary . PROCEDURE DESCRIPTION The patient received Ancef 2 grams prophylactically. She underwent spinal anesthetic without complication, prepped and draped in the usual sterile fashion. A Rios had been previously placed, draining clear urine. Sequentials were placed on the lower extremities for VTE prophylaxis. Excellent pain management control was noted by the patient. A timeout was conducted and agreed by all present in the room. A Pfannenstiel incision was utilized carrying through the skin and subcutaneous layer down to the fascia which was cleaned identifying the rectus fascia, scoring the fascia and dissecting it laterally and then dissecting it away from the rectus muscle identifying the rectus in the midline and opening it in a linear fashion. The peritoneum was identified easily and opened sharply. There were no adhesions noted. The incision was extended the full length to accommodate delivery. The lower uterine segment was identified. A transverse incision was made in the lower uterine segment. Clear fluid was noted from twin A with very minimal volume. The was delivered in total. The cord was doubly clamped and cut and the infant was taken to the isolette by the NICU staff present. Twin B was identified. The sac was opened and then delivery from vertex position without complication. Good tone and cry were noted. The cord was doubly clamped and cut. Appropriate clamps were used to differentiate twin A cord and twin B cord. Twin B was taken to the isolette again with the NICU staff present. The placentas were then removed after obtaining appropriate blood sampling for typing. The placenta was sent to pathology for evaluation. The uterus was explored. There was no retained tissue. It was then closed in a linear fashion with a running locking suture of 0 Monocryl followed by a second imbricating suture of 0 Monocryl. The previous myomectomy scar was midline and well-healed. There was no defect or deformity. The uterus was slightly atonic and requiring the use of Methergine to maintain hemostasis. Irrigation of the pelvis was accomplished and examination of the lower uterine segment was dry. No active bleeding or hematoma. The uterus was firm. A full count was made and correct. The peritoneum was then closed with a running suture of 2-0 Monocryl. The fascia was then closed with 0 Vicryl in a simple running fashion. The muscle belly had been previously re-approximated with a simple interrupted mattress suture of 2-0 Monocryl. The subcutaneous space was irrigated after documentation of closure of the fascia. Small bleeders were cauterized as necessary and then the subcutaneous space was closed with a subcuticular stitch of 2-0 Monocryl. Pinon were then used to reapproximate and close the skin edge. Dressing was applied. Final count was correct. The patient was stable. The twin infant male and female were taken to the NICU on room air. Ryder Ko MD SJAlla/BT /9:13 AM /9:22 AM
== END 2016-10-08 10:30 | disposition home or self-care (01) | DRG 765 ==
LOC: H2EB 09:37 → H1EA 15:44
PROVIDERS: ADMIT Obstetrics & Gynecology; ATTEND Obstetrics & Gynecology
PROC: 10D00Z1 Extraction of Products of Conception, Low, Open Approach (ICD-10-PCS; principal; 2016-10-06)
DX: O76 Abnormality in fetal heart rate and rhythm complicating labor and delivery (principal); O41.03X0 Oligohydramnios, third trimester, not applicable or unspecified; O30.043 Twin pregnancy, dichorionic/diamniotic, third trimester; O09.523 Supervision of elderly multigravida, third trimester; O09.813 Supervision of pregnancy resulting from assisted reproductive technology, third trimester; Z3A.33 33 weeks gestation of pregnancy; Z37.2 Twins, both liveborn
CPT/HCPCS: 59025; 76816; 76819; 81001; 84112; 85007; 85025; 85027; 85384; 85610; 85730; 86850; 86900; 86901; 87086; 88307; 99283; G0378; J0131; J0690; J0702; J2210; J2274; J2405; J2590; J7120